=== PATIENT | male | born 1980 | race Caucasian/White ===

== ENCOUNTER 2020-12-13 20:46 | Emergency (ER) | payer OTHER ==
[~2020-12-13] VITALS: Ht 177.8 cm; Wt 81.8 kg
--- NOTE | 2020-12-13 21:25 | PHYS DOC ---
General Adult EDM: Chief Complaint: ANKLE PROBLEM HPI: HPI: ".. I was playing foot ball and twisted this Lt. ankle... ".."..I am in the command course.. and if I waited until tomorrow... and followed up at [place] .. I would be there all day... 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 Patient has obvious edema. Negative foot squeeze. Distal neurovascular is equal to right foot. Patient Achilles stable. Pain localized primarily to the lateral malleolus. Patient has had previous injury to same ankle. No recent travel. No sick ill contacts. Currently assigned here for the commander's course. Normally healthy. Up-to-date vaccinations. Has completed COVID vaccination. Review of Systems: Review of Systems: Constitutional: Denies fever or chills Eyes: Denies change in visual acuity HENT: Denies nasal congestion or sore throat Respiratory: Denies cough or shortness of breath Cardiovascular: Denies chest pain or edema GI: Denies abdominal pain, nausea, vomiting, bloody stools or diarrhea : Denies dysuria Musculoskeletal: Complains of left ankle pain Integument: Denies rash Neurologic: Denies headache, focal weakness or sensory changes Endocrine: Denies polyuria or polydipsia Lymphatic: Denies swollen glands Psychiatric: Denies depression or anxiety Family History: Family History: Noncontributory to presentation. Current Medications: Current Meds: See nursing for home meds Allergies: Allergies: No known drug allergies Physical Exam: PE: Constitutional: Well developed, well nourished, moderate acute distress, non- toxic appearance. [] HENT: Normocephalic, atraumatic, bilateral external ears normal, oropharynx moist, no oral exudates, nose normal. [] Eyes: PERRLA, EOMI, conjunctiva normal, no discharge. [] Neck: Normal range of motion, no tenderness, supple, no stridor. [] Cardiovascular:Heart rate regular rhythm, no murmur [] Lungs & Thorax: Bilateral breath sounds clear to auscultation [] Abdomen: Bowel sounds normal, soft, no tenderness, no masses, no pulsatile masses. [] Skin: Warm, dry, no erythema, no rash. [] Back: No tenderness, no CVA tenderness. [] Extremities: No tenderness, no cyanosis, no clubbing, ROM intact, no edema. [] Except findings and left ankle as per HPI Neurologic: Alert and oriented X 3, normal motor function, normal sensory function, no focal deficits noted. [] Psychologic: Affect normal, judgement normal, mood normal. [] EKG: EKG: [] Radiology/Procedures: Radiology/Procedures: [][address] [address] IMAGING REPORT Signed PATIENT: VIJAY POWERS ACCOUNT: [id number] : 1980 LOCATION: ER AGE: 39 SEX: M EXAM STATUS: PRE ER ORD. PHYSICIAN: HILLARY SOMMER MD REASON: twisted ankle PROCEDURE: ANKLE LEFT 3V Three-view left ankle dated 12/13/2020. No comparison available. CLINICAL INDICATION: Pain. FINDINGS: 3 views left ankle show normal bony alignment. No displaced fracture. No periostitis or bone destruction. No acute osseous or articular abnormality. There is soft tissue swelling over the lateral malleolus. Talar dome is intact. There is a tiny curvilinear bone fragment near the medial talus seen on only one view. IMPRESSION: 1. Soft tissue swelling with no evidence of displaced fracture. 2. Tiny curvilinear bone fragment over the medial talus seen on only one view, possibly related to an acute avulsion fracture. Electronically signed by: Haroon Patricio MD (12/14/2020 12:20 AM) [facility] [place] DICTATED AND SIGNED BY: HAROON PATRICIO MD DATE: 12/14/20 0019 CC: HILLARY SOMMER MD; PCP,UNKNOWN ~MTH0 0 Impressions: [address] [address] Heart Score: C/O Chest Pain: N/A Risk Factors: Risk Factors: DM, Current or recent (<one month) smoker, HTN, HLP, family history of CAD, obesity. Risk Scores: Score 0 - 3: 2.5% MACE over next 6 weeks - Discharge Home Score 4 - 6: 20.3% MACE over next 6 weeks - Admit for Clinical Observation Score 7 - 10: 72.7% MACE over next 6 weeks - Early Invasive Strategies Course & Med Decision Making: Course & Med Decision Making Pertinent Labs and Imaging studies reviewed. (See chart for details) Distal neurovascular intact after application of splint. Patient use ice packs as needed. Take Tylenol and ibuprofen for pain. Wear splint. Use crutches. Follow-up [facility]. Consider follow-up with [facility] at [facility]. If no improvement re-xray in two weeks. Impression; 1.Sprain ankle. 2.Avulsion Fracture [] Dragon Disclaimer: Dragon Disclaimer: This electronic medical record was generated, in whole or in part, using a voice recognition dictation system. Departure Departure: Referrals: PCP,UNKNOWN (PCP) E[facility] Disclaimer This chart was dictated in whole or in part using Voice Recognition software in a busy, high-work load, and often noisy Emergency Department environment. It may contain unintended and wholly unrecognized errors or omissions. HILLARY SOMMER MD Dec 13, 2020 21:24
[2020-12-13] MEDS: HYDROcodon/IBUPROFEN 7.5/200MG 1 TAB TABLET PO ONE (21:56)
--- NOTE | 2020-12-14 00:23 | RAD ---
Three-view left ankle dated 12/13/2020. No comparison available. CLINICAL INDICATION: Pain. FINDINGS: 3 views left ankle show normal bony alignment. No displaced fracture. No periostitis or bone destruct ion. No acute osseous or articular abnormality. There is soft tissue swelling over the lateral malleo bryanna. Talar dome is intact. There is a tiny curvilinear bone fragment near the medial talus seen on on ly one view. IMPRESSION: 1. Soft tissue swelling with no evidence of displaced fracture. 2. Tiny curvilinear bone fragment over the medial talus seen on only one view, possibly related to an acute avulsion fracture. Electronically signed by: Haroon Patricio MD (12/14/2020 12:20 AM) [facility]
[2020-12-14 00:30] VITALS: BP 116/82
== END 2020-12-14 00:54 | disposition home or self-care (01) ==
LOC: ER 20:46
DX: S92.102A Unspecified fracture of left talus, initial encounter for closed fracture (principal); X50.1XXA Overexertion from prolonged static or awkward postures, initial encounter; Y93.89 Activity, other specified; Y92.89 Other specified places as the place of occurrence of the external cause; Y99.8 Other external cause status
CPT/HCPCS: 29515; 73610; 99283-25